=== PATIENT | male | born 1980 | race Caucasian/White ===

== ENCOUNTER 2020-09-06 08:19 | Outpatient (REF) | payer OTHER, SELFPAY ==
[2020-09-06 11:32] LABS: Hematocrit 48.7 % (42-52); Hemoglobin 16.3 g/dl (14.0-18.0); Mean Corpuscular HGB Conc 33.5 g/dl (31.0-36.0); Mean Corpuscular Volume 86.5 fL (80-98); Mean Platelet Volume 10.8 fL (9.4-12.4); Platelet Count 187 X10*3/uL (160-400); Red Blood Count 5.63 X10*6/uL (4.60-5.80); Red Cell Distribution Width 12.5 % (11.0-16.0); White Blood Count 5.5 X10*3/uL (4.8-10.8)
[2020-09-06 12:04] LABS: Alanine Aminotransferase 34 U/L (0-40); Albumin Level 4.6 g/dL (3.5-5.0); Alkaline Phosphatase 91 U/L (39-117); Anion Gap 13 (12-20); Aspartate Amino Transferase 20 U/L (5-37); Bilirubin Direct 0.3 mg/dL (0.0-0.5); Bilirubin Total 0.7 mg/dL (0.0-1.0); Blood Urea Nitrogen 20 mg/dL (9-16); Calcium 9.6 mg/dL (8.4-10.2); Carbon Dioxide 30 mmol/L (22-29); Chloride 103 mmol/L (96-108); Cholesterol 225 mg/dL; Estimated Glomerular Filt Rate > 60; Glucose Random 94 mg/dL (60-115); HDL Cholesterol 35 mg/dL; LDL Cholesterol Calculated 141 mg/dl; Potassium 3.6 mmol/L (3.3-5.1); Sodium 142 mmol/L (135-145); Total Protein 7.5 g/dL (6.5-8.0); Triglycerides 245 mg/dL
[2020-09-06 12:08] LABS: Thyroid Stimulating Hormone 1.97 uIU/mL (0.32-4.0)
[2020-09-07 20:13] LABS: Vitamin B12 741 pg/mL (200-900)
[2020-09-10 13:17] LABS: Vitamin D 25-OH, D2 <4 ng/mL; Vitamin D 25-OH, D3 30 ng/mL; Vitamin D 25-OH, Total 30 ng/mL (30-100)
== END 2020-09-06 08:20 | disposition home or self-care (01) ==
LOC: HO.HMGCLDS 08:19
PROVIDERS: PCP Internal Medicine; Visit Provider Internal Medicine
DX: I10 Essential (primary) hypertension (principal); G89.4 Chronic pain syndrome
CPT/HCPCS: 36415; 80048; 80061; 80076; 82306; 82607; 82746; 84443; 85027

== ENCOUNTER 2023-06-16 14:08 | Outpatient (AMB) | payer OTHER, SELFPAY ==
[2023-06-16 14:11] VITALS: BP 148/90; PULSE 100; O2SAT 97; BMI 33.6
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
== END 2023-06-16 14:40 | disposition home or self-care (01) ==
PROVIDERS: PCP Internal Medicine; Visit Provider Nurse Practitioner Family
DX: M54.2 Cervicalgia (principal); V49.50XA Passenger injured in collision with unspecified motor vehicles in traffic accident, initial encounter
CPT/HCPCS: 99213

== ENCOUNTER 2023-06-16 14:51 | Outpatient (REF) | payer OTHER, SELFPAY ==
--- NOTE | ~2023-06-16 | XR_ITS ---
EXAMINATION: XR CERVICAL SPINE CLINICAL INFORMATION: Cervicalgia COMPARISON: None available. TECHNIQUE: 3 views of the cervical spine were obtained. FINDINGS: No acute visible fracture or dislocation. Mild multilevel degenerative changes with osteophyte formation. Visualized dens is intact. Lateral masses are symmetric. Vertebral body heights and disc spaces are maintained. Prevertebral soft tissues are unremarkable. Posterior elements are intact. Paraspinal soft tissues are unremarkable. Visualized portions of the upper chest are unremarkable. XR/XR cervical spine 2V IMPRESSION: 1. No acute visible fracture or dislocation. 2. Mild multilevel degenerative changes.
== END 2023-06-16 14:52 | disposition home or self-care (01) ==
LOC: HO.XRAY 14:51
PROVIDERS: PCP Internal Medicine; Visit Provider Nurse Practitioner Family
DX: M54.2 Cervicalgia (principal)
CPT/HCPCS: 72040

== ENCOUNTER 2023-08-14 10:32 | Outpatient (AMB) | payer OTHER, SELFPAY ==
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
[2023-08-14 10:46] VITALS: BP 130/70; PULSE 90; O2SAT 98; BMI 33.8
== END 2023-08-14 11:37 | disposition home or self-care (01) ==
PROVIDERS: PCP Internal Medicine; Visit Provider Internal Medicine
DX: I10 Essential (primary) hypertension (principal); M54.2 Cervicalgia
CPT/HCPCS: 99213

== ENCOUNTER 2025-07-13 08:30 | Outpatient (AMB) | payer OTHER, SELFPAY ==
--- OUTSIDE RECORDS SUMMARY | 2025-07-13 08:33 | XMS_ITS | Clinical Summary ---
Author Organization [facility] Address [address] [place] [id number] Phone Care Team Providers Care Wing Coverer Name Role Phone Solo Solorzano MD Primary Care Provider [phone] Allergies No known active allergies Medications LISINOPRIL ORAL Take by mouth. Active METOPROLOL TARTRATE ORAL Take by mouth. Active atorvastatin calcium (ATORVASTATIN ORAL) Take by mouth. Active Social History Tobacco Use Types Packs/Day Years Used Date Smoking Tobacco: Never Smokeless Tobacco: Never Education Answer Date Recorded Are you interested in more education? Not on ernst e 11/16/2022 Are you concerned about learning? Not on file 11/16/2022 No 11/16/2022 No 11/16/2022 Digital Access Answer Date Recorded No 12/08/2022 No 12/08/2022 Reliable internet access at home? Not on file 12/08/2022 Device with a working camera? Not on file Sex and Gender Information Value Date Recorded Sex Assigned at Not on file Legal Sex Male 5:36 PM EST Gender Identity Not on file Sexual Orientation Not on file Last Filed Vital Signs Vital Sign Reading Time Taken Comments Blood Pressure - - Pulse - - Temperature 37.2 C (99 F) 02/23/2018 1:28 PM EDT Respiratory Rate - - Oxygen Saturation - - Inhaled Oxygen Concentration - - Weight 89.1 kg (196 lb 6.4 oz) 10/21/2018 11:38 AM EDT Height 182.9 cm (6') 10/21/2018 11:38 AM EDT Body Mass Index 26.64 10/21/2018 11:38 AM EDT Plan of Treatment Health Maintenance Due Date Last Done Comments Adult Td,Tdap Booster 1978 CREATININE LEVEL 1978 LIPID PANEL 1978 POTASSIUM LEVEL 1978 DEPRESSION SCREENING 1990 HEPATITIS C SCREENING 1996 HIV ONE-TIME SCREENING (18-6 5 YEARS) 1996 COLOGUARD 2023 COLONOSCOPY 2023 COLORECTAL CANCER SCREENING 2023 FIT TEST 2023 FOBT 2023 SIGMOIDOSCOPY 2023 VIRTUAL COLONOSCOPY 2023 INFLUENZA VACCINE (#1) 2025 COVID-19 VACCINE (2 2 6 season) 2025 06/27/2021 SMOKING STATUS SCREENING (On ce After 26 Yrs) Completed 10/21/2018 HEPATITIS A VACCINES Aged Out No long er eligible based on patient's age to complete this topic HIB VACCINES Aged Out No longer eligi ble based on patient's age to complete this topic MENINGOCOCCAL VACCINES (ACWY) Aged Out No longer eligible based on patient's age to complete this topic MENINGOCOCCAL VACCINES (B) Aged Out N o longer eligible based on patient's age to complete this topic PNEUMOCOCCAL VACCINES (0-49 years) Aged Out No longer eligible based on patient's age to complete this topic Medical Devices Not on file Insurance [facility] [employer] Care Teams Wing Coverer Relationship Specialty Start Date End Date Solo Solorzano MD [address] [place] [address] [place] [address] PCP - General Internal Medicine 11/05/17 Additional Source Comments The information contained in this document represents components of the legal health record. It is not the complete legal health record.[facility]
--- OUTSIDE RECORDS SUMMARY | 2025-07-13 08:33 | XMS_ITS | Encounter Summary ---
Author Organization [facility] Address [address] [place] [address] [place] [id number] Phone Care Team Providers Care Sheeter Helper Name Role Phone Solo Solorzano MD Primary Care Provider [phone] Encounter Details Date Type Department Care Team (Late st Contact Info) Description 11/24/2017 Procedure Pass [facility] Imaging, [facility] [address] [place] [address] Social History Tobacco Use Types Packs/Day Years Used Date Smoking Tobacco: Never Assessed Sex and Gender Information Value Date Recorded Sex Assigned at Not on file Legal Sex Male 5:36 PM EST Gender Identity Not on file Sexual Orientation Not on file documented as of this encounter Plan of Treatment Not on file documented as of this encounter Visit Diagnoses Not on filedocumented in this encounter Care Teams Sheeter Helper Relationship Specialty Start Date End Date Solo Solorzano MD [address] [place] [address] [place] [id number] PCP - General Internal Medicine 11/05/17 documented as of this encounter Additional Source Comments The information contained in this document represents components of the legal health record. It is not the complete legal health record.[facility]
--- NOTE | 2025-07-13 08:42 | MHC.PC.OV ---
Vital Signs 07/13/25 08:44 Height 6 ft Weight 226 lb 4 oz BMI 30.7 BP 120/86 Blood Pressure Location Lt brachial Position Sitting Pulse 75 Pulse Source Pulse Oximeter Temp 97.1 F Temp Source Temporal Artery Scan Pulse Oximetry (%) 98 Oxygen Delivery Method Room Air Intake Visit Reasons: PE - see comments Intake Note: Patient is here today for a physical. Reprint Sorter Required: No Dianetic Counselor: Not Required per policy Accompanied by: Self / Same As Patient Allergies No Known Allergies Allergy (Mild, Verified 07/13/25 09:01) NKA Medication List - Last Reconciled 07/13/25 by Ciaran Levy MD lisinopril 5 mg PO DAILY metoprolol tartrate 25 mg PO BID multivitamin (Daily Multi-Vitamin tablet) 1 tab PO DAILY olanzapine 5 mg PO DAILY sertraline 150 mg (1.5 x 100 mg) PO DAILY Tobacco use date assessed: 07/13/25 Dental Screening Dental Screen Date: 07/13/25 Did you have a dental visit in the last 12 months?: Yes Did you have a dental problem in the last 6 months where you did not have access to dental care?: No Was dental information given to patient?: Patient has dentist HPI HPI Comments History of Present Illness Details History of Present Illness - The patient is a 45 year old male presenting for an annual physical. - He reports he recently had an issue obtaining his metoprolol prescription. - Medication review confirms the patient takes lisinopril once daily, metoprolol twice daily, olanzapine at night, and sertraline 1.5 tablets daily. - He no longer takes cyclobenzaprine for neck pain and avoids ibuprofen as it causes stomach upset. - The patient also reports taking several vitamins. - The patient has a history of being on disability for many years due to issues with his legs and cognition, but has recently returned to work. Social History - Employment: The patient previously received disability benefits for several years and has recently started working at a [employer]. Results [facility] Medical History Generalized anxiety disorder Chronic pain syndrome Essential (primary) hypertension Surgical History History of knee surgery History of ankle surgery History of autologous stem cell transplant Family History Mother Skin cancer Father Postoperative cataract fragments Social History Housing: House Alcohol intake: current Alcohol intake frequency: holidays/special occasions only Patient Tobacco Use Status: Former Tobacco user (2008) e-Cigarette/Vaping Use: Never Used Second Hand Smoke Exposure: Yes service: No Current occupational status: disabled Cognitive needs: Yes (cane) Hearing needs: No Vision needs: No Questionnaire PHQ-9 Over the last 2 weeks, how often have you been bothered by any of the following problems? 1. Little interest or pleasure in doing things: not at all 2. Feeling down, depressed, or hopeless: not at all 3. Trouble falling or staying asleep, or sleeping too much: not at all 4. Feeling tired or having little energy: not at all 5. Poor appetite or overeating: not at all 6. Feeling bad about yourself - or that you are a failure or have let yourself or your family down: not at all 7. Trouble concentrating on things, such as reading the newspaper or watching television: not at all 8. Moving or speaking so slowly that other people could have noticed. Or the opposite - being so fidgety or restless that you have been moving around a lot more than usual: not at all 9. Thoughts that you would be better off or of hurting yourself in some way: not at all Total score: 0 Depression Screening Interpretation: Negative Depression Screening Done: Yes Source: Developed by Drs. Osmani Connolly, Marilin Bai, Salinas Solorzano and colleagues, with an educational gerson from [employer]. Thrive Questionnaire Date Thrive assessed: 07/13/25 I am a: Patient What is your living situation today?: I have a steady place to live Within the past 12 months, did the food you bought not last and you didn't have the money to get more?: Never true Within the past 12 months, did you worry whether your food would run out before you got money to buy more?: Never true Do you have trouble paying for medicines?: No Do you have trouble getting transportation to medical appointments?: No Do you have trouble paying your heating and electricity bill?: No Do you have trouble taking care of your child, family member or friend?: No Do you have trouble with day-to-day activities such as bathing, preparing meals, shopping, managing finances, etc.?: No Are you currently unemployed and looking for a job?: No Are you interested in more education?: No Please select the resources that you would like help with: None Currently or been in a relationship where the following occur: No concerns reported THRIVE Score: 0 AUDIT C Alcohol Use Questionnaire (AUDIT-C) 1. How often do you have a drink containing alcohol?: Monthly or less 2. How many drinks containing alcohol do you have on a typical day when you are drinking?: 1 or 2 Total Score: 1 MANOJ-7 AMB Questionnaire MANOJ-7 Date MANOJ - 7 assessed: 07/13/25 Feeling nervous, anxious, or on edge: 0 = Not at all Not being able to stop or control worryin = Not at all Worrying too much about different things: 0 = Not at all Trouble relaxin = Not at all Being so restless that it is hard to sit still: 0 = Not at all Becoming easily annoyed or irritable: 0 = Not at all Feeling afraid as if something awful might happen: 0 = Not at all Total MANOJ-7 score (0-4 normal; 5-9 mild; 10-14 moderate; 15-21 severe): 0 Source: Developed by Drs. Osmani Connolly, Marilin Bai, Salinas Solorzano and colleagues, with an educational gerson from [employer]. Review of Systems Narrative Review of Systems - Gastrointestinal: Reports dyspepsia with ibuprofen use. - Musculoskeletal: Reports a history of neck pain, which is now resolved. - All other systems reviewed and are negative, with the patient stating, everything else is good. Physical exam (Primary Care) Vital Signs: Last Vital Signs Temp 97.1 F 07/13/25 08:44 Pulse 75 07/13/25 08:44 BP 120/86 07/13/25 08:44 Pulse Ox 98 07/13/25 08:44 Oxygen Delivery Method Room Air 07/13/25 08:44 BMI result Body Mass Index 30.7 Tobacco/Smoking Status: Tobacco use Status Tobacco use date assessed 07/13/25 07/13/25 08:50 Patient Tobacco Use Status Former Tobacco user (2008) 07/13/25 08:50 e-Cigarette/Vaping Use Never Used 07/13/25 08:50 PHQ-9: PHQ-9 Score PHQ-9: Total score 0 07/13/25 08:50 Depression Screening Interpretation: Negative Thrive Assessment: Date of Thrive Assessment Date Thrive assessed 07/13/25 07/13/25 08:50 Currently or been in a relationship where the following occur: No concerns reported Narrative Physical Exam General: Appearance normal, both eyes and all related structures Nutritional Appearance: Well nourished Orientation/consciousness: Patient oriented x3 Limitations: Patient reports limitations due to leg issues Head: Normal to inspection Neck: Normal visual inspection, previously had neck pain Chest: Normal palpation of entire chest wall Respiratory: Normal respiratory effort Neurology: Patient oriented x3 Coding Level of Care Code Est Pt Prev Care 40-64y([id number]) Add On Preventative Visit Only Diagnoses Essential (primary) hypertension I10 Annual physical exam Z00.00 Assessment & Plan Assessment & Plan (1) Essential (primary) hypertension: Code(s): I10 - Essential (primary) hypertension Category: Medical (2) Annual physical exam: Code(s): Z00.00 - Encounter for general adult medical examination without abnormal findings Plan Plan - Ordered fasting blood work and a urine test. - Ordered a Cologuard test for colon cancer screening. - Administered an influenza vaccine. - Continue current medications: lisinopril, metoprolol, olanzapine, and sertraline. - The patient will schedule a follow-up appointment in six months. Discussion Notes I have reviewed the patient's current medications, and he is to continue lisinopril, metoprolol, olanzapine, and sertraline. I have ordered fasting blood work and a urine test. Given the patient's age, I discussed colon cancer screening options and ordered a Cologuard test, to which the patient agreed. The patient has consented to and will receive an influenza vaccine today. I advised the patient to schedule a follow-up appointment in six months. Patient Instructions - Please go to the lab for your blood work and urine test. - You must be fasting for the lab tests, meaning nothing to eat or drink after midnight the night before. - We will send a Cologuard kit to your home for colon cancer screening. - You will receive your flu shot in the office today. - Please continue taking your current medications as prescribed: lisinopril, metoprolol, olanzapine, and sertraline. - Schedule a follow-up appointment in six months. Orders: Orders Basic Metabolic Panel Today I10 - Essential (primary) hypertension Liver Panel Today I10 - Essential (primary) hypertension Lipid Panel Today I10 - Essential (primary) hypertension UA and rflx microscopic Today I10 - Essential (primary) hypertension Complete Blood Count no Diff Today I10 - Essential (primary) hypertension Thyroid Stimulating Hormone Today I10 - Essential (primary) hypertension Prostate Specific Antigen Scr Today I10 - Essential (primary) hypertension Syphilis Screen Today I10 - Essential (primary) hypertension Influenza [id number] Immunization Today Z23 - Encounter for immunization Referrals Cologuard Test Z12.11 - Encounter for screening for malignant neoplasm of colon Medications: New Fluarix [id number] (PF) (flu vac ts (6mos up)-PF) 0.5 mL IM ONCE 0.5 mL 0RF NS Z23 - Encounter for immunization Refilled lisinopril 5 mg PO DAILY 90 tabs 1RF metoprolol tartrate 25 mg PO BID 180 tabs 1RF
[2025-07-13 08:44] VITALS: BP 120/86; PULSE 75; TEMP 36.2; O2SAT 98; BMI 30.7
== END 2025-07-13 09:12 | disposition home or self-care (01) ==
LOC: HO.HMCH 08:31
PROVIDERS: PCP Internal Medicine; Visit Provider Internal Medicine
DX: Z00.00 Encounter for general adult medical examination without abnormal findings (principal); I10 Essential (primary) hypertension; Z23 Encounter for immunization

== ENCOUNTER → 2025-07-13 08:30 | Outpatient (BNVA) | payer OTHER, SELFPAY | PROVIDERS: PCP Internal Medicine; Visit Provider Internal Medicine | DX: Z00.00 Encounter for general adult medical examination without abnormal findings (principal); I10 Essential (primary) hypertension; Z23 Encounter for immunization; Z13.31 Encounter for screening for depression; Z13.39 Encounter for screening examination for other mental health and behavioral disorders | CPT/HCPCS: 90471; 90656; 96127 ==